=== PATIENT | female | born 1955 | race Caucasian/White ===

== ENCOUNTER 2017-04-01 17:20 | Emergency (ER) | payer SELFPAY ==
[2017-04-01] MEDS ORDERED: CLARITIN10 M6 PO (18:01)
[2017-04-01] MEDS ORDERED: SYNTHROID100 MC1 PO (18:01)
[2017-04-01] MEDS ORDERED: CYCLOBENZAPRINE10 M1 PO (18:02)
[2017-04-01] MEDS ORDERED: FLONASE ALLERG9.9 ML (18:02)
[2017-04-01] MEDS ORDERED: SINGULAIR10 M1 PO (18:03)
[2017-04-01] MEDS ORDERED: VENTOLIN HFA18 G2 (18:03)
[2017-04-01] MEDS ORDERED: PHENOBARBITAL100 M1 PO (18:10)
[2017-04-01] MEDS ORDERED: TYLENOL WITH C1 EACH PO (18:10)
== END 2017-04-01 18:21 ==
LOC: EDMED 17:20
DX: Z76.0 Encounter for issue of repeat prescription (principal); I25.10 Atherosclerotic heart disease of native coronary artery without angina pectoris; E03.9 Hypothyroidism, unspecified; J44.9 Chronic obstructive pulmonary disease, unspecified; F17.210 Nicotine dependence, cigarettes, uncomplicated; Z95.1 Presence of aortocoronary bypass graft; Z79.890 Hormone replacement therapy; Z79.899 Other long term (current) drug therapy